=== PATIENT | female | born 1980 | race Caucasian/White ===

== ENCOUNTER 2018-03-31 18:54 | Emergency (ER) | payer OTHER ==
[~2018-03-31] VITALS: Ht 149.9 cm; Wt 59.0 kg
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
[2018-03-31 19:30] LABS: APPEARANCE,URINE Clear (CLEAR); BILIRUBIN,URINE Negative (NEGATIVE); BLOOD, URINE Negative Ery/uL (NEGATIVE); COLOR,URINE Yellow (YELLOW); KETONES,URINE Negative (NEGATIVE); LEUKOCYTE ESTERASE ,URINE Negative (NEGATIVE); NITRITE, URINE Negative (NEGATIVE); PH,URINE 6.5 (5.0-8.0); PROTEIN,URINE Negative (NEGATIVE); UGLUCOSE Negative (NEGATIVE); UROBILINOGEN,URINE 0.2 EU/dL (0.2)
[2018-03-31] MEDS ORDERED: ONDANSETRON 4 MG TAB.RAPDIS ONE (19:37)
[2018-03-31 19:44] LABS: BASOPHILS % (AUTO) 0.3 % (0.0-2.0); EOSINOPHILS % (AUTO) 0.5 % (0.0-6.0); HEMATOCRIT 39 % (33-45); HEMOGLOBIN 12.9 g/dL (11.5-14.8); LYMPHOCYTES # (AUTO) 1.8 /CMM (0.8-4.8); LYMPHOCYTES % (AUTO) 13.6 % (20.0-44.0); MEAN CORPUSCULAR HGB CONC 33 g/dl (31.0-36.0); MEAN CORPUSCULAR VOLUME 87 fL (82-100); MONOCYTES # (AUTO) 0.9 /CMM (0.1-1.30); MONOCYTES % (AUTO) 6.7 % (2.0-12.0); NEUTROPHILS # (AUTO) 10.3 /CMM (1.8-8.9); NEUTROPHILS % (AUTO) 78.9 % (43.0-81.0); PLATELET COUNT (AUTO) 278 /CMM (150-450); RED BLOOD CELL COUNT(AUTO) 4.43 MIL/uL (4.0-5.2)
[2018-03-31 19:48] LABS: CALCIUM, SERUM 8.9 mg/dL (8.5-10.1); CARBON DIOXIDE 26 mmol/L (21-32); CHLORIDE 102 mmol/L (98-107); CREATININE 0.7 mg/dL (0.6-1.3); GLUCOSE 112 mg/dL (74-106); POTASSIUM 3.5 mmol/L (3.5-5.1); SODIUM SERUM 136 mmol/L (136-145); UREA NITROGEN, BLOOD 12 mg/dL (7-18)
[2018-03-31] MEDS ORDERED: ONDANSETRON 4 MG TAB.RAPDIS SL ONE (20:00)
[2018-03-31 20:01] LABS: ALANINE AMINOTRANSFERASE 26 U/L (12-78); ALBUMIN 3.6 g/dL (3.4-5.0); ALCOHOL, BLOOD < 3 mg/dL (0-0); ALKALINE PHOSPHATASE 96 U/L (46-116); ASPARTATE AMINOTRANSFERASE 14 U/L (15-37); BILIRUBIN,TOTAL 0.3 mg/dL (0.2-1.0); TOTAL PROTEIN, SERUM 7.2 g/dL (6.4-8.2)
[2018-03-31 20:02] LABS: ACETAMINOPHEN < 2 ug/ml (10-30); SALICYLATE 1.2 mg/dL (2.8-20.0)
--- NOTE | 2018-03-31 20:02 | NUR ---
PT STATED THAT SHE TAKES KEPPA, CELEXA, SEROQUEL, AND KLONIPIN ON A DAILY BASIS AND STOPPED TAKING THEM 2 DAYS AGO. NOTIFIED.
--- NOTE | 2018-03-31 20:15 | NUR ---
CALLED TRUDY LUZ/SANDING MACHINE TENDER RE: EVAL OF PT. ETA 1HR.
--- NOTE | 2018-03-31 20:24 | NUR ---
1 TO 1 SITTER BEDSIDE WITH PT.
--- NOTE | 2018-03-31 21:00 | NUR ---
PINKY BEDSIDE FOR PSYCH EVAL
--- NOTE | 2018-03-31 21:02 | NUR ---
SUKH RN/AUTOMOTIVE DISMANTLER IS AT THE BEDSIDE EVALUATING THE PT.
--- NOTE | 2018-03-31 21:55 | NUR ---
PT IS GOING TO [facility], DR JONES IS ACCEPTING. GIVE REPORT IN 30 MINS.
--- NOTE | 2018-03-31 22:07 | NUR ---
[facility] ETA 0000 TRIP NUMBER [id number]
--- NOTE | 2018-03-31 23:09 | NUR ---
CALLING REPORT TO [facility] RN. EXT [id number]. UNIT 2
[2018-03-31 23:14] VITALS: BP 120/89
--- NOTE | 2018-03-31 23:14 | NUR ---
REPORT GIVEN TO NURSE TAN
--- NOTE | 2018-04-01 00:29 | NUR ---
PT TRANSPORTED TO [facility] VIA [facility]. REPORT GIVEN TO EMT AND COPY OF CHART GIVEN TO EMT FOR TRANSPORT TO PSYCH FACILITY.
== END 2018-04-01 00:29 ==
LOC: ER 18:54
DX: R45.850 Homicidal ideations (principal); F41.9 Anxiety disorder, unspecified; Z85.41 Personal history of malignant neoplasm of cervix uteri
CPT/HCPCS: 36415; 80048-TC; 80076-TC; 80305; 81000-TC; 84703-TC; 85025-TC; G0480; Q0162